=== PATIENT | male | born 1980 | race African-American/Black ===

== ENCOUNTER 2018-02-01 06:30 | Day surgery (SDC) | payer OTHER ==
[2018-01-16 16:36] VITALS: BMI 22.0
--- NOTE | 2018-02-01 07:54 | HP ---
Satellite [facility] - Chief Complaint Chief Complaint: left wrist mass - Past Medical History Allergies/Adverse Reactions: Allergies Allergy/AdvReac Type Severity Reaction Status Date / Time No Known Drug Allergies Allergy Verified 02/01/18 07:05 - Current Medications Current Medications: Home Medications Medication Instructions Recorded Multivitamin [One Daily] 1 each PO DAILY 01/16/18 Hydrocodone/Acetaminophen [[place] 1 each PO Q6H PRN #20 tablet MDD 4 02/01/18 5-325 Tablet] Satellite Physical Exam - Physical Examination Vital Signs: Vital Signs Period Temp Pulse Resp BP Sys/Saldana Pulse Ox Last 24 Hr 98.3 F 74 20 114/81 99 General Appearance: Well Nourished, Well Developed, Alert & Oriented x3 ENT: Clear Lung: Normal air movement Heart: Regular rate & rhythm Extremities: Other (left wrist- + mass dorsal aspect of wrist, nvi) Neurological: Intact, Alert, Oriented Satellite Impression/Plan - Impression/Plan Impression: left wrist ganglion cyst Operative Procedure: left wrist ganglion cyst excision Date to be Performed: 02/01/18
[2018-02-01] MEDS ORDERED: ONDANSETRON 4 MG/2 ML VIAL IVPUSH PRN (08:02)
[2018-02-01] MEDS ORDERED: oxyCODONE HCL 5 MG TABLET PO PRN ×2 (08:02)
[2018-02-01] MEDS ORDERED: ceFAZolin SODIUM 1 GM VIAL IVPB ONE (08:12)
[2018-02-01] MEDS ORDERED: BUPIVACAINE HCL/PF (5 MG/ML) 30 ML VIAL IJ ONE (08:15)
[2018-02-01] MEDS ORDERED: LACTATED RINGERS SOLUTION 1,000 ML IV SCH (08:15)
--- NOTE | 2018-02-01 08:32 | OP ---
Operative Note - Note: Operative Date: 02/01/18 ([facility]) Pre-Operative Diagnosis: left wrist ganglion cyst Operation: left wrist ganglion cyst excision Post-Operative Diagnosis: Same as Pre-op Surgeon: Scar Cortes Anesthesia: Local, MAC Specimens Removed: cyst Estimated Blood Loss (mls): 0 (tourniquet) Operative Report Dictated: Yes
--- NOTE | 2018-02-01 10:23 | OP ---
DATE OF OPERATION: 02/01/2018 PREOPERATIVE DIAGNOSIS: Left dorsal wrist mass. POSTOPERATIVE DIAGNOSIS: Left dorsal wrist mass. PROCEDURE: Excision mass, left wrist. SURGEON: Peter Foster MD SAFETY LEAD: Scar Cortes MD ANESTHESIA: ; MAC anesthesia with local injection of 8 mL of 0.5% Marcaine and 1% lidocaine mixed. DRAINS: None. COMPLICATIONS: None. SPECIMEN: Mass, left wrist. BLOOD LOSS: None. BLOOD GIVEN: None. FLUID REPLACEMENT: 500 mL. INDICATIONS FOR PROCEDURE: This patient is a 37-year-old male with a preoperative diagnosis of recurrent mass on the dorsal aspect of his left wrist consistent with a ganglion cyst. DESCRIPTION OF PROCEDURE: After understanding the potential risks, complications, alternatives, and benefits of surgical versus nonsurgical treatment, the patient elected to undergo this procedure. He understands that he could have temporary or permanent paresthesias and there is a 1% chance of this mass growing back at this or any other location. The patient was brought to the operating room. Peripheral IV placed. IV sedation given. One gram of IV Ancef was given. MAC anesthesia was induced. The left upper extremity was elevated and exsanguinated with an Esmarch bandage. Tourniquet inflated to 250 mmHg. A longitudinal incision was marked out with a marking pen. Next, 8 mL of 0.5% Marcaine and 1% lidocaine mixture was injected in and around the surgical incision. The incision was made with a number-15 scalpel blade. Subcutaneous hemostasis was achieved with the bipolar cautery. Circumferential dissection was done around an obviously abnormal mass. At one point, it popped and classic, ganglion cyst-like fluid was expressed. It was a multi-loculated ganglion cyst. It was relatively large, certainly larger than what could be appreciated from the skin, and had a large stalk going down to the dorsal wrist capsule. Careful circumferential dissection was done. The extensor tendons were retracted. The stalk was found and decapitated at its base. This was passed off the field as specimen. The area was irrigated and washed out. I did not see any other abnormal tissue. The area was cauterized. The base was cauterized. It was irrigated again. Closure was done with 4-0 undyed Vicryl in the deep dermal layer and final skin reapproximation was done with a running subcuticular 4-0 Biosyn stitch. The area was then washed and dried. Covered with Steri-Strips, 4 x 4's, fluffs between the fingers, Webril, and Coban. The tourniquet was taken down after a total tourniquet time of 20 minutes. There were no complications during the case. The patient tolerated the procedure quite well and was brought to the ambulatory recovery room in stable condition. Tucker RIVERS/[id number]
[2018-02-01 15:48] VITALS: BP 113/72; PULSE 71
[2018-02-01 15:50] VITALS: TEMP 98
--- NOTE | 2018-02-02 16:40 | PATH ---
Surgical Pathology Report Patient Name: DL GARCIA [facility]. Rec. #: [id number] /Age/Gender: 1980 (Age: 37) / M Account: [id number] Location: [facility] SURGICAL Taken: 02/01/2018 Received: 02/01/2018 Reported: 02/02/2018 Physicians: Scar Cortes M.D. Specimen(s) Received MASS OF LEFT WRIST Clinical History Ganglion cyst Final Diagnosis WRIST, LEFT, MASS, EXCISION: FIBROCONNECTIVE TISSUE WITH MYXOID AND CYSTIC CHANGE CONSISTENT WITH GANGLION CYST. Electronically Signed Lorenza Valle M.D. Gross Description Received in formalin labeled "left wrist mass," is a 2.1 x 1.8 x 0.3 cm garcia portion of soft tissue, possibly consistent with a cyst. The specimen is entirely submitted in one cassette. /02/02/201802/02/2018
== END 2018-02-01 11:10 | disposition home or self-care (01) ==
LOC: JASU-SURG 06:30
PROVIDERS: ATTEND Orthopaedic Surgery
PROC: 0LB60ZZ Excision of Left Lower Arm and Wrist Tendon, Open Approach (ICD-10-PCS; principal; 2018-02-01 08:00)
DX: M67.432 Ganglion, left wrist (principal)
CPT/HCPCS: 88304-TC; 94760